=== PATIENT | female | born 1970 | race Caucasian/White ===

== ENCOUNTER 2016-12-14 16:03 | Emergency (ER) | payer MEDICAID | END 2016-12-14 18:02 | disposition home or self-care (01) | LOC: D.ER 16:03 | DX: S00.11XA Contusion of right eyelid and periocular area, initial encounter (principal); Y04.2XXA Assault by strike against or bumped into by another person, initial encounter; Y93.89 Activity, other specified; Y92.019 Unspecified place in single-family (private) house as the place of occurrence of the external cause; F41.9 Anxiety disorder, unspecified; J44.9 Chronic obstructive pulmonary disease, unspecified; F41.0 Panic disorder [episodic paroxysmal anxiety]; F17.200 Nicotine dependence, unspecified, uncomplicated ==

== ENCOUNTER 2017-07-01 17:53 | Emergency (ER) | payer MEDICAID | END 2017-07-01 19:10 | disposition left against medical advice (07) | LOC: D.ER 17:53 | DX: H92.02 Otalgia, left ear (principal) ==

== ENCOUNTER 2018-03-27 18:38 | Emergency (ER) | payer MEDICAID ==
[~2018-03-27] VITALS: Ht 157.5 cm; Wt 50.0 kg
[2018-03-27 18:40] VITALS: Ht 157.5 cm; Wt 50.0 kg
[2018-03-27 19:52] LABS: APPEARANCE CLEAR (CLEAR); COLOR YELLOW (YELLOW)
[2018-03-27 19:53] LABS: BILIRUBIN NEGATIVE (NEGATIVE); GLUCOSE NEGATIVE (NEGATIVE); KETONE NEGATIVE (NEGATIVE); NITRITE NEGATIVE (NEGATIVE); PROTEIN NEGATIVE (NEGATIVE); SPECIFIC GRAVITY 1.015 (1.005-1.020); UROBILINOGEN NORMAL (NORMAL)
[2018-03-27 20:01] LABS: BACTERIA MANY /hpf (NONE SEEN); WHITE CELLS - URINE 25-50 /hpf (0-5)
[2018-03-27 20:02] LABS: MUCUS <1+ /lpf (NONE SEEN)
[2018-03-27] MEDS ORDERED: CIPRO500 MG PO (20:39)
[2018-03-27 21:22] VITALS: BP 124/67
== END 2018-03-27 21:22 | disposition home or self-care (01) ==
LOC: D.ER 18:38
PROVIDERS: Family Medicine
DX: N39.0 Urinary tract infection, site not specified (principal); B37.3 Candidiasis of vulva and vagina; A59.01 Trichomonal vulvovaginitis; F17.200 Nicotine dependence, unspecified, uncomplicated

== ENCOUNTER 2018-05-21 22:25 | Emergency (ER) | payer MEDICAID ==
[~2018-05-21] VITALS: Ht 157.5 cm; Wt 461.4 kg
[~2018-05-21 22:25] MED LIST: CIPRO500 MG PO
[2018-05-21 22:39] VITALS: Ht 157.5 cm; Wt 461.4 kg
[2018-05-21] MEDS ORDERED: CIPRO HC OTIC S10 ML LEFT EAR (22:59)
[2018-05-21] MEDS ORDERED: BACTRIM DS1 TAB PO (22:59)
[2018-05-21] MEDS ORDERED: DIFLUCAN150 MG PO (22:59)
[2018-05-21 23:13] VITALS: BP 119/84
== END 2018-05-21 23:14 | disposition home or self-care (01) ==
LOC: D.ER 22:25
DX: H60.502 Unspecified acute noninfective otitis externa, left ear (principal); N76.0 Acute vaginitis; F17.200 Nicotine dependence, unspecified, uncomplicated

== ENCOUNTER 2018-06-21 02:02 | Emergency (ER) | payer MEDICAID ==
[~2018-06-21] VITALS: Ht 157.5 cm; Wt 54.5 kg
[~2018-06-21 02:02] MED LIST changes: +BACTRIM DS1 TAB PO; +CIPRO HC OTIC S10 ML LEFT EAR; +DIFLUCAN150 MG PO
[2018-06-21 02:13] VITALS: Ht 157.5 cm; Wt 54.5 kg
[2018-06-21] MEDS ORDERED: NORCO 7.5/325 T1 TA1 PO (03:14)
[2018-06-21] MEDS ORDERED: BACTRIM DS1 TAB PO (03:15)
[2018-06-21 03:40] VITALS: BP 132/78
== END 2018-06-21 03:41 | disposition home or self-care (01) ==
LOC: D.ER 02:02
DX: L73.2 Hidradenitis suppurativa (principal); F17.200 Nicotine dependence, unspecified, uncomplicated

== ENCOUNTER 2018-07-02 13:23 | Emergency (ER) | payer MEDICAID ==
[~2018-07-02] VITALS: Ht 157.5 cm; Wt 50.0 kg
[~2018-07-02 13:23] MED LIST changes: +NORCO 7.5/325 T1 TA1 PO
[2018-07-02 13:31] VITALS: Ht 157.5 cm; Wt 50.0 kg
[2018-07-02] MEDS ORDERED: LEVOFLOXACIN500 MG PO (15:04)
[2018-07-02] MEDS ORDERED: TESSALON PERLE100 MG PO (15:04)
[2018-07-02] MEDS ORDERED: ALBUTEROL SULF8.5 GM INH (15:04)
[2018-07-02 16:23] VITALS: BP 98/70
== END 2018-07-02 15:51 | disposition home or self-care (01) ==
LOC: D.ER 13:23
DX: J40 Bronchitis, not specified as acute or chronic (principal); M79.18 Myalgia, other site; F17.200 Nicotine dependence, unspecified, uncomplicated

== ENCOUNTER 2018-08-29 20:02 | Emergency (ER) | payer MEDICAID ==
[~2018-08-29] VITALS: Ht 157.5 cm; Wt 54.5 kg
[~2018-08-29 20:02] MED LIST changes: +ALBUTEROL SULF8.5 GM INH; +LEVOFLOXACIN500 MG PO; +TESSALON PERLE100 MG PO
[2018-08-29 20:21] VITALS: Ht 157.5 cm; Wt 54.5 kg
[2018-08-29] MEDS ORDERED: DOXYCYCLINE HY100 M2 PO (22:59)
[2018-08-29] MEDS ORDERED: DIFLUCAN150 MG PO (22:59)
[2018-08-29 23:10] VITALS: BP 120/74
== END 2018-08-29 23:11 | disposition home or self-care (01) ==
LOC: D.ER 20:02
DX: J01.90 Acute sinusitis, unspecified (principal); R05 Cough; R68.83 Chills (without fever); M79.18 Myalgia, other site

== ENCOUNTER 2018-11-13 21:31 | Emergency (ER) | payer MEDICAID ==
[~2018-11-13 21:31] MED LIST changes: +DOXYCYCLINE HY100 M2 PO
[2018-11-13 21:41] VITALS: BMI 22.0
[2018-11-14 01:25] LABS: APPEARANCE HAZY (CLEAR); BILIRUBIN NEGATIVE (NEGATIVE); COLOR YELLOW (YELLOW); GLUCOSE NEGATIVE (NEGATIVE); KETONE NEGATIVE (NEGATIVE); NITRITE POSITIVE (NEGATIVE); PROTEIN NEGATIVE (NEGATIVE); UROBILINOGEN NORMAL (NORMAL)
[2018-11-14 01:26] LABS: AMORPHOUS SEDIMENT >1+ /lpf (NONE SEEN); BACTERIA MANY /hpf (NONE SEEN); EPITHELIAL CELLS 0-5 /hpf (0-5); RED CELLS - URINE NONE SEEN /hpf (0-5)
[2018-11-14] MEDS ORDERED: TYLENOL W/CODEI1 TAB PO (01:41)
[2018-11-14] MEDS ORDERED: BACTRIM 400-801 TAB PO (01:43)
[2018-11-14 01:52] VITALS: BP 138/88
== END 2018-11-14 01:50 | disposition home or self-care (01) ==
LOC: D.ER 21:31
PROVIDERS: Emergency Medicine
DX: N39.0 Urinary tract infection, site not specified (principal); H66.92 Otitis media, unspecified, left ear; K08.89 Other specified disorders of teeth and supporting structures

== ENCOUNTER 2018-12-23 00:33 | Emergency (ER) | payer MEDICAID ==
[~2018-12-23] VITALS: Ht 157.5 cm; Wt 53.6 kg
[~2018-12-23 00:33] MED LIST changes: +BACTRIM 400-801 TAB PO; +TYLENOL W/CODEI1 TAB PO
[2018-12-23 00:39] VITALS: BP 136/84; Ht 157.5 cm; Wt 53.6 kg
[2018-12-23 01:02] LABS: APPEARANCE HAZY (CLEAR); BILIRUBIN NEGATIVE (NEGATIVE); COLOR YELLOW (YELLOW); GLUCOSE NEGATIVE (NEGATIVE); KETONE NEGATIVE (NEGATIVE); NITRITE NEGATIVE (NEGATIVE); PH 5.5 (5.0-6.0); PROTEIN NEGATIVE (NEGATIVE); UROBILINOGEN NORMAL (NORMAL)
[2018-12-23 01:10] LABS: BACTERIA MANY /hpf (NONE SEEN); EPITHELIAL CELLS 0-5 /hpf (0-5); RED CELLS - URINE OCC /hpf (0-5); WHITE CELLS - URINE 0-5 /hpf (0-5)
[2018-12-23] MEDS ORDERED: DIFLUCAN150 MG PO (01:18)
== END 2018-12-23 01:28 | disposition home or self-care (01) ==
LOC: D.ER 00:33
PROVIDERS: Family Medicine
DX: B37.3 Candidiasis of vulva and vagina (principal)

== ENCOUNTER 2019-02-08 18:20 | Emergency (ER) | payer MEDICAID ==
[~2019-02-08] VITALS: Ht 157.5 cm; Wt 51.9 kg
[2019-02-08 19:03] VITALS: Ht 157.5 cm; Wt 51.9 kg
[2019-02-08] MEDS ORDERED: EFFEXOR75 MG PO (19:05)
[2019-02-08] MEDS ORDERED: BUSPIRONE HCL30 MG PO (19:06)
[2019-02-08] MEDS ORDERED: TRAZODONE HCL150 MG PO (19:06)
[2019-02-08 19:26] LABS: BASOPHILS 0.6 % (0-2); HEMATOCRIT 44.5 % (36.0-48.0); HEMOGLOBIN 15.4 g/dL (12-16); IMMATURE GRANULOCYTES 0.3 % (0-5); LYMPHOCYTES 20.5 % (15-50); MCH 30.6 pg (26.0-34.0); MCHC 34.6 g/dL (31.0-37.0); MCV 88.5 fL (80.0-100.0); MEAN PLATELET VOLUME 8.1 fL (7.4-10.4); MONOCYTES 9.1 % (2-11); NEUTROPHILS 65.5 % (40-80); PLATELET COUNT 420 10x3/uL (130-400); RBC 5.03 10x6/uL (4.00-5.40); RDW 13.4 % (11.5-14.5); WBC 12.6 10x3/uL (4.8-10.8)
[2019-02-08 19:44] LABS: APPEARANCE CLEAR (CLEAR); BILIRUBIN NEGATIVE (NEGATIVE); COLOR YELLOW (YELLOW); GLUCOSE NEGATIVE (NEGATIVE); HCG URINE NEGATIVE (NEGATIVE); KETONE NEGATIVE (NEGATIVE); NITRITE NEGATIVE (NEGATIVE); PROTEIN NEGATIVE (NEGATIVE); SPECIFIC GRAVITY 1.015 (1.005-1.020); UROBILINOGEN NORMAL (NORMAL)
[2019-02-08 19:45] LABS: ALKALINE PHOSPHATASE 140 U/L (46-116); ALT (SGPT) 61 U/L (10-68); BILIRUBIN - TOTAL 0.42 mg/dL (0.2-1.3); CALC OSMOLALITY 270 mosm/kg (275-300); CALCIUM 8.9 mg/dL (8.5-10.1); CARBON DIOXIDE 27.2 mmol/L (21.0-32.0); CHLORIDE - SERUM 99 mmol/L (98-107); CREATININE - SERUM 0.8 mg/dL (0.6-1.3); GLUCOSE 102 mg/dL (74-106); POTASSIUM - SERUM 3.4 mmol/L (3.5-5.1); PROTEIN - SERUM 9.3 g/dL (6.4-8.2); SODIUM 136 mmol/L (136-145); UREA NITROGEN 11 mg/dL (7-18); eGFR NON AFRICAN AMERICAN 81 mL/min (90-120)
[2019-02-08 19:52] LABS: UDS - AMPHET NEGATIVE QUAL (NEGATIVE); UDS - BARB NEGATIVE QUAL (NEGATIVE); UDS - BENZO NEGATIVE QUAL (NEGATIVE); UDS - COCAINE NEGATIVE QUAL (NEGATIVE); UDS - OPIATE NEGATIVE QUAL (NEGATIVE); UDS - PCP NEGATIVE QUAL (NEGATIVE); UDS - THC NEGATIVE QUAL (NEGATIVE)
[2019-02-08 19:53] LABS: THYROID STIMULATING HORMONE 2.96 uIU/mL (0.36-3.74)
--- NOTE | 2019-02-08 20:13 | NUR ---
PT ASSESSED A HIGH RISK FOR SUICIDE AND A SITTER WAS ORDERED PER DR. ESTEVES. PT IN PAPER SCRUBS AND IN A SAFE ROOM UNDER CLOSE MONITORING WHEN BEHAVIORAL HEALTH ARRIVED TO DO ASSESSMENT. ALL BELONGINGS AT NURSES STATION. DR. ESTEVES AND ATTENDING PHYSICIAN NOTIFIED OF ASSESSMENT FINDINGS. RESOURCES GIVEN TO PT AND REVIEWED WITH HER. PT VERBALIZED UNDERSTANDING. SAFETY PLAN INITIATED AND A COPY GIVEN TO PT AND ORIGINAL IN CHART.
[2019-02-08] MEDS ORDERED: DIFLUCAN150 MG PO (21:03)
[2019-02-08] MEDS ORDERED: BACTRIM 400-801 TAB PO (21:03)
[2019-02-09 00:13] VITALS: BP 123/78
== END 2019-02-09 06:16 ==
LOC: D.ER 18:20
PROVIDERS: Family Medicine
DX: R45.851 Suicidal ideations (principal); F41.9 Anxiety disorder, unspecified; F32.9 Major depressive disorder, single episode, unspecified; B37.9 Candidiasis, unspecified; F43.10 Post-traumatic stress disorder, unspecified; X58.XXXA Exposure to other specified factors, initial encounter; Y93.89 Activity, other specified; Y92.89 Other specified places as the place of occurrence of the external cause

== ENCOUNTER 2019-12-03 12:19 | Emergency (ER) | payer MEDICAID ==
[~2019-12-03] VITALS: Ht 157.5 cm; Wt 56.8 kg
[~2019-12-03 12:19] MED LIST changes: +BUSPIRONE HCL30 MG PO; +EFFEXOR75 MG PO; +TRAZODONE HCL150 MG PO
[2019-12-03 12:22] VITALS: Ht 157.5 cm; Wt 56.8 kg
[2019-12-03 13:00] LABS: BASOPHILS 0.6 % (0-2); EOSINOPHILS 3.1 % (0-7); HEMATOCRIT 42.7 % (36.0-48.0); HEMOGLOBIN 14.2 g/dL (12-16); IMMATURE GRANULOCYTES 0.3 % (0-5); LYMPHOCYTES 24.6 % (15-50); MCH 29.9 pg (26.0-34.0); MCHC 33.3 g/dL (31.0-37.0); MCV 89.9 fL (80.0-100.0); MEAN PLATELET VOLUME 8.3 fL (7.4-10.4); MONOCYTES 8.4 % (2-11); PLATELET COUNT 426 10x3/uL (130-400); RBC 4.75 10x6/uL (4.00-5.40)
[2019-12-03 13:12] LABS: CALC OSMOLALITY 268 mosm/kg (275-300); CALCIUM 9.6 mg/dL (8.5-10.1); CARBON DIOXIDE 27.1 mmol/L (21.0-32.0); CHLORIDE - SERUM 101 mmol/L (98-107); CREATININE - SERUM 0.6 mg/dL (0.6-1.3); GLUCOSE 91 mg/dL (74-106); POTASSIUM - SERUM 4.2 mmol/L (3.5-5.1); SODIUM 135 mmol/L (136-145); UREA NITROGEN 10 mg/dL (7-18); eGFR NON AFRICAN AMERICAN > 90 mL/min (90-120)
[2019-12-03 13:19] LABS: ALBUMIN 3.9 g/dL (3.4-5.0); ALKALINE PHOSPHATASE 86 U/L (30-120); ALT (SGPT) 51 U/L (10-68); BILIRUBIN - TOTAL 0.22 mg/dL (0.2-1.3); PROTEIN - SERUM 7.7 g/dL (6.4-8.2)
[2019-12-03 13:28] LABS: BILIRUBIN NEGATIVE (NEGATIVE); GLUCOSE NEGATIVE (NEGATIVE); KETONE NEGATIVE (NEGATIVE); NITRITE NEGATIVE (NEGATIVE)
[2019-12-03 13:35] LABS: UDS - AMPHET NEGATIVE QUAL (NEGATIVE); UDS - BARB NEGATIVE QUAL (NEGATIVE); UDS - BENZO NEGATIVE QUAL (NEGATIVE); UDS - COCAINE NEGATIVE QUAL (NEGATIVE); UDS - OPIATE NEGATIVE QUAL (NEGATIVE); UDS - PCP NEGATIVE QUAL (NEGATIVE); UDS - THC NEGATIVE QUAL (NEGATIVE)
[2019-12-03 14:26] VITALS: BP 138/80
== END 2019-12-03 14:27 | disposition home or self-care (01) ==
LOC: D.ER 12:19
PROVIDERS: Family Medicine
DX: H53.8 Other visual disturbances (principal); F41.9 Anxiety disorder, unspecified

== ENCOUNTER → 2019-12-23 14:00 | Outpatient (CLI) | payer MEDICAID ==
[2019-12-03 12:22] VITALS: BMI 22.9
== END | disposition home or self-care (01) ==
LOC: D.MRI 14:00
PROVIDERS: ATTEND Ophthalmology
DX: H53.452 Other localized visual field defect, left eye (principal); H53.451 Other localized visual field defect, right eye